=== PATIENT | male | born 1950 | race Caucasian/White ===

== ENCOUNTER 2021-06-13 11:45 | Emergency (ER) | payer MEDICARE, BC ==
--- NOTE | 2021-06-13 12:33 | CR ---
Chest: PA and lateral views of the chest were obtained. Comparison: No previous chest x-ray. Slight pleural thickening is seen within the right upper chest. I believe this is most likely due to poorly visualized rib fractures. Lungs otherwise are clear. Heart size and mediastinum are normal. Scattered degenerative change is noted within the spine. Slight loss of several vertebral body heights are seen which I believe are most likely chronic. Impression: 1. Pleural thickening along the right upper chest most likely representing change from rib fractures which are poorly seen. 2. Other findings as noted above which are chronic. Diagnostic code #3
--- NOTE | 2021-06-13 12:33 | CR ---
Right humerus: 2 views of the right humerus were obtained. Comparison: No prior humerus study is available. No fracture or other bony abnormality is appreciated. Pleural thickening is again seen along the right lateral chest. Impression: 1. Pleural thickening along the right lateral chest. Difficult to exclude change from rib fractures. 2. Right humerus study is unremarkable. Diagnostic code #3
--- NOTE | 2021-06-13 12:33 | CR ---
Right forearm: 2 views of the right forearm were obtained. Comparison: No previous forearm study is available. No fracture or other bony abnormality is appreciated. Impression: 1. Nothing acute is seen on 2 view right forearm exam. Diagnostic code #1
--- NOTE | 2021-06-13 14:16 | EDM.PDOC ---
ED HPI GENERAL MEDICAL PROBLEM - General Chief Complaint: Upper Extremity Injury/Pain Stated Complaint: [facility] Time Seen by Provider: 06/13/21 11:55 Source of Information: Reports: Patient, EMS History Limitations: Reports: No Limitations - History of Present Illness INITIAL COMMENTS - FREE TEXT/NARRATIVE: The patient presents by [facility] ambulance for right shoulder pain after being bucked off of a horse. The patient was on a trail ride in [place] and his horse got spooked and bucked him off. He landed on his right shoulder. He did not hit his head or hurt his neck. He has no LOC. He has pain to the right forearm, upper right arm and right lateral chest. He has no abdominal pain, hip or leg pain. Onset: Sudden Duration: Minutes: Location: Reports: Chest, Upper Extremity, Right (humerus and forearm) Quality: Reports: Sharp Severity: Moderate Improves with: Reports: Immobilization Worsens with: Reports: Movement Context: Reports: Trauma (bucked off a horse) Associated Symptoms: Reports: Chest Pain. Denies: Cough, Fever/Chills, Headaches, Nausea/Vomiting, Shortness of Breath Right Arm Pain Score (Numeric/FACES): 4 - Related Data Allergies Allergy/AdvReac Type Severity Reaction Status Date / Time Penicillins Allergy Severe Cannot Verified 06/13/21 12:01 Remember Home Meds: Home Meds Hydrocodone/Acetaminophen [Hydrocodone-Acetamin 5-325 mg] 1 - 2 each PO Q6H PRN #15 tablet 06/13/21 [Rx] Past Medical History Cardiovascular History: Reports: High Cholesterol - Past Surgical History Cardiovascular Surgical History: Reports: Other (See Below) Other Cardiovascular Surgeries/Procedures: angiogram GI Surgical History: Reports: Hernia Repair/Other Musculoskeletal Surgical History: Reports: Other (See Below) Other Musculoskeletal Surgeries/Procedures:: ankle surgery Social & Family History - Tobacco Use Tobacco Use Status *Q: Former Tobacco User Used Tobacco, but Quit: Yes Month/Year Tobacco Last Used: 7 years ago - Recreational Drug Use Recreational Drug Use: No Review of Systems - Review of Systems Review Of Systems: See Below Constitutional: Reports: No Symptoms Eyes: Reports: No Symptoms Ears: Reports: No Symptoms Nose: Reports: No Symptoms Mouth/Throat: Reports: No Symptoms Respiratory: Reports: No Symptoms Cardiovascular: Reports: Chest Pain GI/Abdominal: Reports: No Symptoms Genitourinary: Reports: No Symptoms Musculoskeletal: Reports: Other (right upper arm pain and right forearm pain) ED EXAM, GENERAL - Physical Exam Exam: See Below Exam Limited By: No Limitations General Appearance: Alert, No Apparent Distress Ears: Normal External Exam Nose: Normal Inspection Head: Atraumatic, Normocephalic Neck: Normal Inspection, Supple, Non-Tender Respiratory/Chest: No Respiratory Distress, Lungs Clear, Normal Breath Sounds Cardiovascular: Regular Rate, Rhythm, No Edema, No Murmur, Other (Mild pain upon palpation to the right lateral chest) GI/Abdominal: Soft, Non-Tender, No Organomegaly, No Mass Back Exam: Normal Inspection Extremities: Other (Pain upon palpation with edema to the right foream. Pain upon palpation to the mid right upper arm. Good sensaton and pulses distally.) Course - Vital Signs Last Recorded V/S: Last Vital Signs Temp 97.6 F 06/13/21 11:56 Pulse 71 06/13/21 11:56 Resp 16 06/13/21 11:56 BP 157/80 H 06/13/21 11:56 Pulse Ox 95 06/13/21 11:56 - Orders/Labs/Meds Orders: Active Orders 24 hr Category Date Time Status RT Incentive Spirometry [RC] ASDIRECTED Care 06/13/21 14:05 Active Durable Medical Equipment for Discharge [DME for Oth 06/13/21 14:06 Ordered Discharge] [COMM] Stat - Re-Assessments/Exams Free Text/Narrative Re-Assessment/Exam: 06/13/21 14:10 I ordered a CXR, x-ray of his humerus and right forearm. The x-ray of his humerus and forearm show no fracture. The x-ray of his chest shows pleural thickening along the right upper chest most likely representing change from rib fractures which are poorly seen. Other findings as noted above which are chronic. I will discharge him home with incentive spirometer and something for pain. I will also get him a sling. I feel he may have a rotator cuff injury. Departure - Departure Time of Disposition: 14:25 Disposition: Home, Self-Care 01 Condition: Good Clinical Impression: Fall Qualifiers: Encounter type: initial encounter Qualified Code(s): W19.XXXA - Unspecified fall, initial encounter Chest wall injury Qualifiers: Encounter type: initial encounter Qualified Code(s): S29.9XXA - Unspecified injury of thorax, initial encounter Injury of right rotator cuff Qualifiers: Encounter type: initial encounter Qualified Code(s): S46.001A - Unspecified injury of muscle(s) and tendon(s) of the rotator cuff of right shoulder, initial encounter - Discharge Information *PRESCRIPTION DRUG MONITORING PROGRAM REVIEWED*: Not Applicable *COPY OF PRESCRIPTION DRUG MONITORING REPORT IN PATIENT CASSANDRA: Not Applicable Prescriptions: Hydrocodone/Acetaminophen [Hydrocodone-Acetamin 5-325 mg] 1 - 2 each PO Q6H PRN #15 tablet PRN Reason: Pain Referrals: PCP,Not In Area [Primary Care Provider] - Forms: ED Department Discharge Additional Instructions: Ice the areas that hurt for 15 minutes 3 times per day for 2 days. Take tylenol or motrin for pain. If that does not help, try the hydrocodone. Use the incentive spirometer 10 breaths every other hour while awake for 1 week. Follow up with your doctor and an orthopedic surgeon. I am worried you may have a rotator cuff injury to your right shoulder. Wear the sling to help prevent further injury. Take it off a few times per day and move your shoulder to avoid getting "frozen shoulder" where the ligaments and tendons get tight. Sepsis Event Note (ED) - Evaluation Sepsis Screening Result: No Definite Risk - Focused Exam Vital Signs: Vital Signs Temp Pulse Resp BP Pulse Ox 06/13/21 11:56 97.6 F 71 16 157/80 H 95 - My Orders Last 24 Hours: My Active Orders 06/13/21 14:05 RT Incentive Spirometry [RC] ASDIRECTED 06/13/21 14:06 Durable Medical Equipment for Discharge [DME for Discharge] [COMM] Stat - Assessment/Plan Last 24 Hours: My Active Orders 06/13/21 14:05 RT Incentive Spirometry [RC] ASDIRECTED 06/13/21 14:06 Durable Medical Equipment for Discharge [DME for Discharge] [COMM] Stat
[2021-06-13] MEDS ORDERED: Acetaminophen/HYDROcodone 325-5 MG Tab PO ONE (14:50)
== END 2021-06-13 14:55 | disposition home or self-care (01) ==
LOC: JD.ED 11:45
DX: S29.9XXA Unspecified injury of thorax, initial encounter (principal); S46.001A Unspecified injury of muscle(s) and tendon(s) of the rotator cuff of right shoulder, initial encounter; Z88.0 Allergy status to penicillin; Z87.891 Personal history of nicotine dependence; V80.010A Animal-rider injured by fall from or being thrown from horse in noncollision accident, initial encounter
CPT/HCPCS: 71046; 73060; 73090; 99284; A9270; 99283